=== PATIENT | male | born 1970 | race Caucasian/White ===

== ENCOUNTER → 2019-09-25 | Outpatient (REF) | payer OTHER, MEDICAID, MEDICARE | LOC: M LAB REF 13:34 | PROVIDERS: ATTEND Physician Assistant Medical | DX: J02.9 Acute pharyngitis, unspecified (principal) ==

== ENCOUNTER 2021-03-18 10:30 | Emergency (ER) | payer MEDICAID, MEDICARE, OTHER ==
[~2021-03-18] VITALS: Ht 167.6 cm; Wt 69.1 kg
[2021-03-18] MEDS ORDERED: ceFAZolin SOD 1 GM in D5W MINI-BAG PLUS 50 ML IV ONE (11:15)
[2021-03-18] MEDS ORDERED: BOOSTRIX/ADACEL VACCINE (DIPHTH/PERTUSS/ACELL/TETANUS) 0.5ML SYR IM ONE (11:15)
--- NOTE | 2021-03-18 11:24 | REP ---
INDICATION: CHEST PAIN. COMPARISON: No comparison chest x-ray. TECHNIQUE: Portable upright AP chest radiograph. FINDINGS: The lungs are well inflated and free of infiltrate. Pleural angles are sharp. Heart size is normal. Pulmonary vasculature is not increased. IMPRESSION: No active disease. <Electronically signed by Vicente Metz > 03/18/21 [id number]
--- NOTE | 2021-03-18 11:25 | REP ---
INDICATION: fall. COMPARISON: None. TECHNIQUE: Four views of the right hand are provided. FINDINGS: Four views of the right hand demonstrate normal bones, joints, and soft tissues. No fracture or subluxation is seen. No opaque foreign body noted. IMPRESSION: Negative right hand series. <Electronically signed by Vicente Metz > 03/18/21 [id number]
--- NOTE | 2021-03-18 11:41 | REP ---
INDICATION: syncope, head injury. COMPARISON: 01/06/2017 TECHNIQUE: Standard helical technique using 2 mm increments and reconstructed in both sagittal and coronal planes. FINDINGS: Vertebral body height and alignment is unchanged and again seen to be within normal limits. The facet joints are again seen to be well aligned bilaterally. Chronic anterior lipping is seen at T1-2 and T2-3. This was not imaged on the prior C-spine exam. There is no acute fracture. Stable chronic changes are seen at C1-2. There is no abnormal paraspinal soft tissue swelling. IMPRESSION: No acute abnormality or significant change compared to the prior exam. <Electronically signed by Earl Alonso > 03/18/21 [id number]
--- NOTE | 2021-03-18 11:42 | REP ---
INDICATION: syncope, head injury. COMPARISON: None. TECHNIQUE: 4.5 mm contiguous transaxial sections were obtained from the skull base to the cerebral convexities with thin cuts through the posterior fossa without the administration of intravenous contrast. FINDINGS: The ventricles and sulci are consistent with the patient's age. There are no extra-axial fluid collections. There is no mass effect. The deep cerebral white matter is consistent with the patient's age. The orbital and petrous structures, cerebellopontine angles, and posterior fossa are unremarkable. The sella turcica, cavernous, and paracavernous structures are essentially unremarkable. The visualized portions of the paranasal sinuses and mastoid air cells are clear. Images of the skull base show no gross abnormality. IMPRESSION: Essentially unremarkable CT examination of the brain. <Electronically signed by Earl Alonso > 03/18/21 [id number]
[2021-03-18 11:48] LABS: BASO % 0.2 % (0.0-1.0); EOS % 0.1 % (0.0-3.0); HEMATOCRIT 40.6 % (42.0-52.0); HEMOGLOBIN 13.7 g/dl (13.5-17.5); LYMPH # 1.1 10^3/uL (1.5-5.0); LYMPH % 7.4 % (24.0-44.0); MEAN CORPUSCULAR HEMOGLOBIN 29.8 pg (27.0-33.0); MEAN CORPUSCULAR HGB CONC 33.7 g/dl (32.0-36.5); MEAN CORPUSCULAR VOLUME 88.5 fl (80.0-96.0); MONO # 0.9 10^3/uL (0.0-0.8); MONO % 6.6 % (2.0-8.0); NEUTROPHILS # 12.2 10^3/uL (1.5-8.5); NEUTROPHILS % 85.3 % (36.0-66.0); PLATELET COUNT, AUTOMATED 239 10^3/uL (150-450); RED BLOOD COUNT 4.59 10^6/uL (4.30-6.10); WHITE BLOOD COUNT 14.3 10^3/uL (4.0-10.0)
[2021-03-18] MEDS ORDERED: COQ-30CA2 PO (12:00)
[2021-03-18] MEDS ORDERED: D31000TA2 PO (12:00)
[2021-03-18] MEDS ORDERED: FOLTTAB9 PO (12:00)
[2021-03-18] MEDS ORDERED: MULT1TAB8 PO (12:00)
[2021-03-18] MEDS ORDERED: CBD OIL (12:00)
[2021-03-18 12:21] LABS: ALBUMIN 4.1 GM/DL (3.2-5.2); BILIRUBIN,DIRECT 0.1 MG/DL (0.0-0.2); BILIRUBIN,TOTAL 0.5 MG/DL (0.2-1.0); FREE T4 1.15 NG/DL (0.76-1.46); THYROID STIMULATING HORMONE 1.04 uIU/ML (0.358-3.740); TOTAL PROTEIN 6.9 GM/DL (6.4-8.2)
[2021-03-18] MEDS ORDERED: LIDOCAINE 2% W/EPINEPHRINE 20ML VIAL **PRES FREE INJ ONE (12:45)
[2021-03-18] MEDS ORDERED: LIDOCAINE 2% MDV 20ML VIAL SC ONE (12:45)
[2021-03-18] MEDS ORDERED: NS 1,000 ML IV ONE (15:30)
--- NOTE | 2021-03-18 15:42 | ECGEPIP ---
[facility] - ED Test Date: 2021-03-18 Pat Name: DONNA ROUSE Department: Room: - Gender: Male Telephone Sales Agent: NASREEN : 1970 Requested By: Chino Malik Order Number: [id number] Reading MD: Kirit Noguera Measurements Intervals [place] Rate: 60 P: 45 WI: 138 QRS: 8 QRSD: 96 T: 15 QT: 428 QTc: 428 Interpretive Statements Normal sinus rhythm with sinus arrhythmia Comparison tracing not on file Electronically Signed on 03-18-2021 15:41:52 EDT by Kirit Noguera
[2021-03-18 18:00] VITALS: BP 126/80
[2021-03-18] MEDS ORDERED: CEPH500C PO (18:06)
--- NOTE | 2021-03-18 19:27 | CR ---
CONSULTATION DATE: 03/18/2021 CHIEF COMPLAINT: Right index finger extensor tendon laceration. HISTORY OF PRESENT ILLNESS: This 51-year-old man had a fall into a gate. He lost consciousness. He had a syncope episode. This was this morning. He is here today with Yani, his . This happened at 9 a.m. I was consulted by Dr. Jacob, the emergency department physician aws solution architect. The patient is left hand dominant. He normally cannot use it for the last 20 years. 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 He cannot flex or extend or do anything. He describes it as "pretty much a elbow from the elbow down." He received tetanus and antibiotics per the ED physician. PAST MEDICAL HISTORY: Sometimes low blood pressure episodes. MEDICATIONS: None ALLERGIES: No known drug allergies. PAST SURGICAL HISTORY: He had a right elbow injury as a child. SOCIAL HISTORY: He is on disability for his right hand, forearm and elbow reflex sympathetic dystrophy. His hobbies he describes are not so many nowadays. He used to have a lot more hobbies. He does not smoke, does not use alcohol or street drugs. PHYSICAL EXAMINATION: A 51-year-old man. He appears well. His right hand has a small oblique 2.5 cm long laceration over the MCP joint of the right index finger. The wound edges appear clean. There is an obvious extensor tendon laceration. This does not appear to enter into the joint. He is unable to flex or extend the hand normally. This is his baseline. He has no sensation throughout the hand. Cap refill is 3 seconds. Hand feels warm and well perfused. IMAGING STUDIES: Radiographs were reviewed that were normal, no obvious fracture. ASSESSMENT AND PLAN: This 51-year-old man has a laceration that appears to involve the extensor tendon in the right index finger at the MCP joint. He normally has nonfunctional fingers and hand. We discussed the pros and cons, risks and benefits of going ahead with irrigation and debridement and laceration repair. Given his pre-injury inability to extend his finger, a tendon repair may or may not be indicated in this case. I do still recommend followup with a hand surgeon on an acute basis within the next three days. I recommend Dr. Sanchez or Dr. Rollins at [facility]. I did repair and perform a thorough irrigation and debridement of the laceration. The patient has been advised also to follow up within two weeks for suture removal, wound check, change the bandage everyday, keep the wound clean and dry, outpatient antibiotics recommended for 5-7 days as prescribed by the ED physician, no showering over top of it and follow up if there is any further redness, swelling discharge, drainage or signs of an infection. PROCEDURE NOTE: I discussed the pros and cons, risks and benefits of going ahead with right index finger laceration, irrigation, debridement and repair. The specific risks include but not limited to infection, pain, stiffness, bleeding, damage to surrounding structures, infection as well as specific in this case that I was not planning to attempt repair of the extensor tendon. He consented to the procedure, signed the consent form for that. Given that fact that this was in the ED with a small laceration repair, I did not perform a preprocedure timeout after consultation with Dr. Jacob, the emergency department physician. I performed thorough irrigation with one liter of normal saline followed by scrubbing with sterile gauze as well as iodine prep solution. I allowed this to thoroughly dry. I used 2 mL of 2% Xylocaine. I used a 25 gauge needle for this. I instilled this in and around the incision of the laceration site. I used 3-0 Ethilon in a horizontal mattress fashion with one simple suture for a total of four stitches. This appeared well apposed. I cleaned the wound, dressed it with sterile 4x4 gauze and loosely apposed Tram wrap. I informed the patient to elevate. The patient and his had no further questions. LIANNA
== END 2021-03-18 18:31 | disposition left against medical advice (07) ==
LOC: M ED 10:30
DX: S01.81XA Laceration without foreign body of other part of head, initial encounter (principal); S61.210A Laceration without foreign body of right index finger without damage to nail, initial encounter; W19.XXXA Unspecified fall, initial encounter; Y92.9 Unspecified place or not applicable; Y93.9 Activity, unspecified; Y99.9 Unspecified external cause status; R55 Syncope and collapse; Z53.21 Procedure and treatment not carried out due to patient leaving prior to being seen by health care provider; Z79.899 Other long term (current) drug therapy
CPT/HCPCS: 12002; 70450; 71045; 72125; 73130; 80047; 80076; 83880; 84439; 84443; 84484; 85025; 90471; 90715; 93005; 93041; 94760; 96361; 96365; 99285; J0690

== ENCOUNTER → 2024-06-20 | Outpatient (CLI) | payer MEDICARE, MEDICAID ==
[~2024-06-20] MED LIST: CBD OIL; CEPH500C PO; COQ-30CA2 PO; FOLTTAB9 PO; MULT1TAB8 PO; VITA100093 PO
== END ==
LOC: M SOG 08:12
PROVIDERS: ATTEND Physician Assistant
DX: M79.642 Pain in left hand (principal)